=== PATIENT | male | born 1955 | race Caucasian/White ===

== ENCOUNTER 2022-12-09 00:32 | Observation (INO) | payer BC, MEDICARE ==
[~2022-12-09] VITALS: Ht 182.9 cm; Wt 126.6 kg
[2022-12-09] MEDS ORDERED: ATORVASTATIN CA20 MG PO (00:48)
[2022-12-09] MEDS ORDERED: METF500 PO (00:48)
[2022-12-09] MEDS ORDERED: RYBELSUS7 MG PO (00:48)
[2022-12-09] MEDS ORDERED: Lisinopril2.5 MG PO (00:48)
[2022-12-09 00:55] LABS: Calcium, Ionized (POC) 1.16 mmol/L (1.10-1.46); Chloride (POC) 103 mmol/L (98-108); Creatinine (POC) 0.9 mg/dL (0.8-1.3); Glucose (ISTAT POC) 221 mg/dL (70-99); Potassium (POC) 4.2 mmol/L (3.5-5.5); Sodium (POC) 137 mmol/L (135-148); Total CO2 (POC) 23 mmol/L (21-32)
[2022-12-09 00:57] LABS: BASOPHILS ABSOLUTE AUTO 0.08 K/mm3 (0.00-0.23); BASOPHILS PERCENT AUTO 1 % (0-2); EOSINOPHILS ABSOLUTE AUTO 0.15 K/mm3 (0.00-0.68); EOSINOPHILS PERCENT AUTO 1 % (0-6); Hematocrit 43.7 % (37.0-53.0); Hemoglobin 14.9 g/dL (13.5-17.5); IMMATURE GRAN ABSOLUTE AUTO 0.04 K/mm3 (0.00-0.10); IMMATURE GRAN PERCENT AUTO 0 % (0-1); LYMPHOCYTES ABSOLUTE AUTO 1.58 K/mm3 (0.84-5.20); LYMPHOCYTES PERCENT AUTO 13 % (21-46); MONOCYTES ABSOLUTE AUTO 1.26 K/mm3 (0.16-1.47); MONOCYTES PERCENT AUTO 11 % (4-13); Mean Corpuscular HGB Conc 34.1 g/dL (31.5-36.5); Mean Corpuscular Volume 88 fL (80-100); Mean Platelet Volume 10.3 fL (9.1-12.4); NEUTROPHILS ABSOLUTE AUTO 8.78 K/mm3 (1.96-9.15); NEUTROPHILS PERCENT AUTO 74 % (41-73); Platelet Count 176 K/mm3 (150-400); RDW Coefficient Variation 13.2 % (11.7-14.2); RDW Standard Deviation 42.5 fL (35.1-46.3); Red Blood Cell Count 4.97 M/mm3 (4.30-5.90); White Blood Cell Count 11.89 K/mm3 (4.00-11.30)
[2022-12-09 01:23] LABS: Albumin, Blood 3.7 g/dL (3.4-5.0); Albumin/Globulin Ratio 1.2 (0.8-1.8); Bilirubin, Total 1.8 mg/dL (0.1-1.0); Calcium, Blood 8.6 mg/dL (8.5-10.1); Creatinine, Blood 0.89 mg/dL (0.60-1.20); Potassium, Blood 4.3 mmol/L (3.5-5.5); Total Protein, Blood 6.7 g/dL (6.4-8.2)
[2022-12-09 02:47] LABS: Anti-Xa UFH, PHA Monitoring <0.10 IU/mL; International Normalized Ratio 0.93; Prothrombin Time Results 9.8 Sec (9.7-11.5)
[2022-12-09 03:04] VITALS: BP 109/68
[2022-12-09 04:19] LABS: BASOPHILS ABSOLUTE AUTO 0.06 K/mm3 (0.00-0.23); BASOPHILS PERCENT AUTO 1 % (0-2); EOSINOPHILS ABSOLUTE AUTO 0.04 K/mm3 (0.00-0.68); EOSINOPHILS PERCENT AUTO 0 % (0-6); Hemoglobin 14.1 g/dL (13.5-17.5); IMMATURE GRAN ABSOLUTE AUTO 0.04 K/mm3 (0.00-0.10); IMMATURE GRAN PERCENT AUTO 0 % (0-1); LYMPHOCYTES ABSOLUTE AUTO 1.38 K/mm3 (0.84-5.20); LYMPHOCYTES PERCENT AUTO 12 % (21-46); MONOCYTES ABSOLUTE AUTO 1.34 K/mm3 (0.16-1.47); MONOCYTES PERCENT AUTO 11 % (4-13); Mean Corpuscular HGB Conc 33.6 g/dL (31.5-36.5); Mean Corpuscular Volume 89 fL (80-100); Mean Platelet Volume 10.6 fL (9.1-12.4); NEUTROPHILS ABSOLUTE AUTO 9.12 K/mm3 (1.96-9.15); NEUTROPHILS PERCENT AUTO 76 % (41-73); Platelet Count 165 K/mm3 (150-400); RDW Coefficient Variation 13.3 % (11.7-14.2); RDW Standard Deviation 43.6 fL (35.1-46.3); White Blood Cell Count 11.98 K/mm3 (4.00-11.30)
--- NOTE | 2022-12-09 05:31 | NUR ---
ARRIVAL TO PCU7 / SAFETY & EDUCATION / SHIFT SUMMARY PT ARRIVED TO PCU7 AT APPROXIMATELY 0300. PT TRANSFERED FROM ER GURNEY TO HOSPITAL BED WITH SBA. PT A&Ox4, COMMUNICATES NEEDS APPROPRIATELY, ORIENTED TO CALL LIGHT/UNIT. BP STABLE, SINUS 70's, REPORTS 7/10 CP BUT STATES THAT ITS IMPROVING FROM WHEN IN THE ER. SpO2> 92% RA, DENIES SOB. BED IN LOWEST POSITION, CALL LIGHT IN REACH. SAFETY & EDUCATION PT & FAMILY EDUCATED RE: IGNITION SOURCES AND RISK OF INJURY WHILE OXYGEN IS IN USE. PT DENIES SMOKING & PT AND FAMILY VERBALIZE UNDERSTANDING. SHIFT SUMMARY NO ACUTE CHANGES. NOTIFED PHYSICIAN OF CP, ORDERS PLACED FOR PAIN MANAGMENT. HEPARIN gtt INFUSING PER EMAR, MANAGED BY PHARMACY. NS INFUSING PER EMAR. PT NPO. NO OTHER EVENTS, WILL REPORT TO ONCOMING RN.
[2022-12-09 06:14] LABS: Albumin, Blood 3.6 g/dL (3.4-5.0); Albumin/Globulin Ratio 1.4 (0.8-1.8); Bun/Creatinine Ratio 16.8 (12.0-20.0); Calcium, Blood 8.5 mg/dL (8.5-10.1); Creatinine, Blood 1.07 mg/dL (0.60-1.20); Globulin, Blood 2.6 g/dL (2.2-4.0); Potassium, Blood 4.7 mmol/L (3.5-5.5); Total Protein, Blood 6.2 g/dL (6.4-8.2)
[2022-12-09 07:35] VITALS: BP 101/64
--- NOTE | 2022-12-09 10:17 | NUR ---
CARE ASSUMPTION This RN assumed care at 0700. vital signs stable. tele sr. patient is alert and oriented x4. perrla. patient reports no pain or shortness of breath. patient reports chest pain, rated 3/10, and it occurs with exertion and deep breathing. md holbrook in to see patient this am, and is signed off from cardiology. md cherry in the room and discussed plan of care. plan of care is up to date. see shift assessment for further information. call light within reach. at bedside.
[2022-12-09 11:26] VITALS: BP 112/73
[2022-12-09] MEDS ORDERED: ASPI81CH PO (15:13)
[2022-12-09] MEDS ORDERED: PANT40 PO (15:14)
[2022-12-09] MEDS ORDERED: HYDR1TAB94 PO (15:15)
[2022-12-09 15:19] VITALS: BP 111/71
--- NOTE | 2022-12-09 15:56 | NUR ---
discharge this rn went over discharge education with the patient and family. this rn went over new medication and dose increase. patient and verbalized understanding. medications faxed to [facility] and patient left with hard script. patient left with all belongings and in no distress.
== END 2022-12-09 15:53 | disposition home or self-care (01) ==
LOC: ER 00:32 → PCU 00:33
PROVIDERS: Emergency Medicine; ADMIT Internal Medicine
DX: I20.0 Unstable angina (principal); I10 Essential (primary) hypertension; E11.9 Type 2 diabetes mellitus without complications
CPT/HCPCS: 36415; 71045; 71275; 74175; 80047; 80053; 82947; 83690; 83880; 84484; 85014; 85025; 85520; 85610; 85730; 96374; 96375; 96376; 99285-25; A9270; C8929; G0378; J1644; J1815; J2405; J3010; J7030; Q9957; Q9967